=== PATIENT | male | born 1995 | race Caucasian/White ===

== ENCOUNTER 2017-10-09 21:13 | Emergency (ER) | payer MEDICAID ==
[~2017-10-09] VITALS: Ht 591.1 cm; Wt 69.5 kg
[2017-10-09 23:05] LABS: BASOPHILS # (AUTO) 0.1 X10'3 (0-0.2); BASOPHILS % (AUTO) 0.6 % (0-1); EOSINOPHILS # (AUTO) 0.8 X10'3 (0-0.9); EOSINOPHILS % (AUTO) 6.1 % (0-6); HEMATOCRIT 44.3 % (42.0-52.0); HEMOGLOBIN 15.4 g/dl (14.0-17.9); LYMPHOCYTES # (AUTO) 1.7 X10'3 (1.1-4.8); LYMPHOCYTES % (AUTO) 12.5 % (21-51); MEAN CORPUSCULAR HEMOGLOBIN 29.3 PG (27.0-31.0); MEAN CORPUSCULAR HGB CONC 34.9 % (33.0-36.5); MEAN CORPUSCULAR VOLUME 84.2 FL (78-98); MEAN PLATELET VOLUME 7.7 FL (7.4-10.4); MONOCYTES # (AUTO) 1.1 X10'3 (0-0.9); MONOCYTES % (AUTO) 8.5 % (2-12); NEUTROPHILS # (AUTO) 9.7 X10'3 (1.8-7.7); NEUTROPHILS % (AUTO) 72.3 % (42-75); PLATELET COUNT 335 X10'3 (140-440); RED BLOOD COUNT 5.26 X10'6 (4.70-6.10); RED CELL DISTRIBUTION WIDTH 12.9 % (11.5-14.5); WHITE BLOOD COUNT 13.4 X10'3 (4.5-11.0)
[2017-10-09 23:15] LABS: PARTIAL THROMBOPLASTIN TIME 32 SECONDS (22-32); PROTHROMBIN TIME 10.8 SECONDS (9.0-12.0)
[2017-10-09 23:22] LABS: ALANINE AMINOTRANSFERASE 23 U/L (12-78); ALBUMIN 3.6 G/DL (3.4-5.0); ALBUMIN/GLOBULIN RATIO 0.9 (1.1-1.5); ALKALINE PHOSPHATASE 74 IU/L (46-116); ANION GAP 7 (8-16); ASPARTATE AMINO TRANSFERASE 12 U/L (10-37); BILIRUBIN,TOTAL 0.5 MG/DL (0.1-1.0); BLOOD UREA NITROGEN 13 MG/DL (7-18); BUN/CREATININE RATIO 12.1 (5.4-32.0); CALCIUM 9.6 MG/DL (8.5-10.1); CHLORIDE 102 MMOL/L (99-107); CREATININE 1.07 MG/DL (0.60-1.10); GLUCOSE 107 MG/DL (70-104); POTASSIUM 3.6 MMOL/L (3.5-5.1); SODIUM 134 MMOL/L (135-145); TOTAL CARBON DIOXIDE 25.5 MMOL/L (24-32); TOTAL PROTEIN 7.6 G/DL (6.4-8.2); eGFR 86 ML/MIN
[2017-10-10 00:09] VITALS: BP 114/49
[2017-10-10] MEDS ORDERED: SULF1TAB49 PO (00:42)
[2017-10-10] MEDS ORDERED: CEPH500C5 PO (00:42)
== END 2017-10-10 00:54 | disposition home or self-care (01) ==
LOC: ER 21:13
DX: L02.511 Cutaneous abscess of right hand (principal); Z88.8 Allergy status to other drugs, medicaments and biological substances; Z79.899 Other long term (current) drug therapy
CPT/HCPCS: 10060; 36415; 80053; 83605; 84145; 85025; 85610; 85730; 87040; 99284; A6449

== ENCOUNTER 2017-10-15 10:58 | Emergency (ER) | payer MEDICAID ==
[~2017-10-15] VITALS: Ht 172.7 cm; Wt 69.0 kg
[~2017-10-15 10:58] MED LIST: CEPH500C5 PO; SULF1TAB49 PO
[2017-10-15 11:43] VITALS: BP 135/89
== END 2017-10-15 11:46 | disposition home or self-care (01) ==
LOC: ER 10:58
DX: T81.4XXA Infection following a procedure, initial encounter (principal); L03.012 Cellulitis of left finger; L02.512 Cutaneous abscess of left hand; J45.909 Unspecified asthma, uncomplicated; Z88.5 Allergy status to narcotic agent; Y92.9 Unspecified place or not applicable
CPT/HCPCS: 99283; A6222; A6255

== ENCOUNTER 2018-10-27 14:51 | Emergency (ER) | payer MEDICAID ==
[~2018-10-27] VITALS: Ht 172.7 cm; Wt 60.0 kg
[2018-10-27 14:53] VITALS: BP 123/62
== END 2018-10-27 15:56 | disposition home or self-care (01) ==
LOC: ER 14:51
DX: M25.531 Pain in right wrist (principal); M25.532 Pain in left wrist; J45.909 Unspecified asthma, uncomplicated; Z88.8 Allergy status to other drugs, medicaments and biological substances; Y08.89XA Assault by other specified means, initial encounter; Y93.89 Activity, other specified; Y92.148 Other place in prison as the place of occurrence of the external cause; Y99.8 Other external cause status
CPT/HCPCS: 71045; 73030; 73110; 99283

== ENCOUNTER 2019-02-14 23:01 | Emergency (ER) | payer MEDICAID ==
[~2019-02-14] VITALS: Ht 180.3 cm; Wt 68.2 kg
[2019-02-15 00:20] VITALS: BP 136/78
== END 2019-02-15 00:22 | disposition home or self-care (01) ==
LOC: ER 23:02
DX: S82.252A Displaced comminuted fracture of shaft of left tibia, initial encounter for closed fracture (principal); J45.909 Unspecified asthma, uncomplicated; Z88.5 Allergy status to narcotic agent; V09.9XXA Pedestrian injured in unspecified transport accident, initial encounter; Y93.89 Activity, other specified; Y92.89 Other specified places as the place of occurrence of the external cause; Y99.9 Unspecified external cause status
CPT/HCPCS: 29515; 99283

== ENCOUNTER 2019-02-22 18:24 | Emergency (ER) | payer MEDICAID ==
[~2019-02-22] VITALS: Ht 177.8 cm; Wt 68.2 kg
[2019-02-22] MEDS ORDERED: HYDROcodone/acetaminophen 5mg/325mg tablet PO ONE (19:05)
[2019-02-22 20:32] VITALS: BP 128/65
== END 2019-02-22 20:35 | disposition home or self-care (01) ==
LOC: ER 18:25
DX: M79.605 Pain in left leg (principal); J45.909 Unspecified asthma, uncomplicated; L90.5 Scar conditions and fibrosis of skin; Z59.0 Homelessness; Z88.6 Allergy status to analgesic agent; X58.XXXA Exposure to other specified factors, initial encounter; Y93.89 Activity, other specified; Y92.89 Other specified places as the place of occurrence of the external cause; Y99.8 Other external cause status
CPT/HCPCS: 29515; 99284

== ENCOUNTER 2019-03-16 12:34 | Inpatient (IN) | payer MEDICAID ==
[~2019-03-16] VITALS: Ht 180.3 cm; Wt 68.2 kg
[2019-03-16] MEDS ORDERED: CEPH-572 PO (13:29)
[2019-03-16] MEDS ORDERED: SULF1TAB49 PO (13:29)
[2019-03-16] MEDS ORDERED: LIDOcaine 1% W/epiNEPHrine 1:200,000 10ml vial IJ ONE (13:45)
[2019-03-16] MEDS ORDERED: HYDROcodone/acetaminophen 10/325mg tab PO ONE (14:05)
[2019-03-16] MEDS ORDERED: iohexol 300mg/ml 100ml inj. ONE (14:25)
[2019-03-16] MEDS ORDERED: levoFLOXACIN-Levaquin 500mg/D5 100 ML IV ONE (14:35)
[2019-03-16] MEDS ORDERED: normal saline 1000ML IV soln IVB ONE (14:35)
[2019-03-16 14:45] LABS: BASOPHILS # (AUTO) 0.1 X10'3 (0-0.2); BASOPHILS % (AUTO) 0.5 % (0-1); EOSINOPHILS # (AUTO) 0.1 X10'3 (0-0.9); EOSINOPHILS % (AUTO) 0.6 % (0-6); HEMATOCRIT 38.3 % (42.0-52.0); LYMPHOCYTES # (AUTO) 1.3 X10'3 (1.1-4.8); LYMPHOCYTES % (AUTO) 5.7 % (21-51); MEAN CORPUSCULAR HEMOGLOBIN 28.1 PG (27.0-31.0); MEAN CORPUSCULAR VOLUME 82.5 FL (78-98); MEAN PLATELET VOLUME 6.4 FL (7.4-10.4); MONOCYTES # (AUTO) 1.7 X10'3 (0-0.9); MONOCYTES % (AUTO) 7.6 % (2-12); NEUTROPHILS # (AUTO) 19.3 X10'3 (1.8-7.7); NEUTROPHILS % (AUTO) 85.6 % (42-75); PLATELET COUNT 450 X10'3 (140-440); RED BLOOD COUNT 4.64 X10'6 (4.70-6.10); RED CELL DISTRIBUTION WIDTH 14.1 % (11.5-14.5); WHITE BLOOD COUNT 22.5 X10'3 (4.5-11.0)
[2019-03-16 14:56] LABS: ALANINE AMINOTRANSFERASE 40 U/L (12-78); ALBUMIN 2.7 G/DL (3.4-5.0); ALBUMIN/GLOBULIN RATIO 0.5 (1.1-1.5); ALKALINE PHOSPHATASE 115 IU/L (46-116); ANION GAP 1 (8-16); ASPARTATE AMINO TRANSFERASE 12 U/L (10-37); BILIRUBIN,TOTAL 0.1 MG/DL (0.1-1.0); BLOOD UREA NITROGEN 13 MG/DL (7-18); BUN/CREATININE RATIO 17.6 (5.4-32.0); CALCIUM 9.3 MG/DL (8.5-10.1); CHLORIDE 102 MMOL/L (99-107); CREATININE 0.74 MG/DL (0.60-1.10); GLUCOSE 94 MG/DL (70-104); POTASSIUM 4.8 MMOL/L (3.5-5.1); SODIUM 136 MMOL/L (135-145); TOTAL CARBON DIOXIDE 32.8 MMOL/L (24-32); TOTAL PROTEIN 7.8 G/DL (6.4-8.2); eGFR > 90 ML/MIN
[2019-03-16] MEDS ORDERED: NO HOME MEDS (16:19)
[2019-03-16] MEDS ORDERED: HYDROcodone/acetaminophen 5mg/325mg tablet PO PRN (16:25)
[2019-03-16] MEDS ORDERED: magnesium Cl slow-release 64mg tablet PO PRN (16:25)
[2019-03-16] MEDS ORDERED: ondansetron/PF 4mg/2ml inj IV PRN (16:25)
[2019-03-16] MEDS ORDERED: metoclopramide 5 mg/ml inj IV PRN (16:25)
[2019-03-16] MEDS ORDERED: diphenhydrAMINE 50 mg/ml inj IV PRN (16:25)
[2019-03-16] MEDS ORDERED: diphenhydrAMINE 25mg capsule PO PRN (16:25)
[2019-03-16] MEDS ORDERED: acetaminophen 325mg tablet PO PRN ×2 (16:25)
[2019-03-16] MEDS ORDERED: potassium Cl 20 mEq SR tablet PO PRN ×2 (16:25)
[2019-03-16] MEDS ORDERED: magnesium hydroxide 30ml (MOM) UD suspension PO PRN (16:25)
[2019-03-16] MEDS ORDERED: bisacodyl 10mg suppository rectal RC PRN (16:25)
[2019-03-16] MEDS ORDERED: magnesium 4gm in 100ml NS 100 ML IV PRN (16:25)
[2019-03-16] MEDS ORDERED: magnesium 2GM in 50ml NS 50 ML IV PRN (16:25)
[2019-03-16] MEDS ORDERED: potassium CL 10mEq/100ml bag 100 ML IV PRN ×2 (16:25)
[2019-03-16] MEDS ORDERED: mag hydrox/Alum hydrox/simeth 30ml oral suspension PO PRN (16:25)
[2019-03-16 16:54] LABS: PARTIAL THROMBOPLASTIN TIME 31 SECONDS (22-32)
[2019-03-16] MEDS: normal saline 1000ml 1,000 ML IV SCH (17:11)
[2019-03-16] MEDS ORDERED: TETanus/Pertussis (Acell)/Diphther VAC/PF (Tdap-Adult) 0.5ml syringe IMVAC ONE (17:40)
[2019-03-16] MEDS: VANCOMYCIN 1gm/H2O 200ml PB 200 ML IV SCH (18:49)
[2019-03-16] MEDS: K and/or MAG REPLACEMENT MC SCH (20:00)
--- NOTE | 2019-03-16 20:12 | NUR ---
Patient in room [facility] 354. I have received report from CRISTOFER Diaz in ED and had the opportunity to ask questions and will assume patient care when pt arrives to unit
--- NOTE | 2019-03-16 20:28 | NUR ---
Pt brought up from ED via gurney and was able to ambulate to bed. Pt is A&O x4, VSS
[2019-03-16 20:40] VITALS: BP 113/62
[2019-03-16] MEDS: HYDROcodone/acetaminophen 10/325mg tab PO PRN (20:49)
[2019-03-16] MEDS: docusate sod 100mg capsule PO SCH (20:56)
[2019-03-16] MEDS ORDERED: temazepam 15mg capsule PO PRN (21:00)
[2019-03-17] VITALS: BP 110/55
[2019-03-17] MEDS: HYDROcodone/acetaminophen 10/325mg tab PO PRN ×4 (02:21→22:03)
[2019-03-17] MEDS: VANCOMYCIN 1gm/H2O 200ml PB 200 ML IV SCH ×3 (02:22→19:36)
[2019-03-17 02:33] LABS: URINE AMPHETAMINE SCREEN NEGATIVE (Neg); URINE BARBITUATE SCREEN NEGATIVE (Neg); URINE BENZODIAZEPINES SCREEN NEGATIVE (Neg); URINE CANNABINOID SCREEN POSITIVE (Neg); URINE COCAINE SCREEN NEGATIVE (Neg); URINE METHADONE SCREEN NEGATIVE (Neg); URINE OPIATE SCREEN POSITIVE (Neg); URINE PHENCYCLIDINE SCREEN NEGATIVE (Neg)
[2019-03-17] MEDS: normal saline 1000ml 1,000 ML IV SCH ×3 (04:41→17:58)
[2019-03-17 05:03] LABS: BASOPHILS % (AUTO) 0.3 % (0-1); EOSINOPHILS # (AUTO) 0.3 X10'3 (0-0.9); EOSINOPHILS % (AUTO) 1.6 % (0-6); HEMATOCRIT 36.1 % (42.0-52.0); HEMOGLOBIN 12.2 g/dl (14.0-17.9); LYMPHOCYTES # (AUTO) 1.8 X10'3 (1.1-4.8); MEAN CORPUSCULAR HEMOGLOBIN 27.8 PG (27.0-31.0); MEAN CORPUSCULAR HGB CONC 33.8 g/dL (33.0-36.5); MEAN CORPUSCULAR VOLUME 82.2 FL (78-98); MEAN PLATELET VOLUME 6.5 FL (7.4-10.4); MONOCYTES # (AUTO) 1.5 X10'3 (0-0.9); MONOCYTES % (AUTO) 9.4 % (2-12); NEUTROPHILS # (AUTO) 12.7 X10'3 (1.8-7.7); NEUTROPHILS % (AUTO) 77.7 % (42-75); PLATELET COUNT 379 X10'3 (140-440); RED BLOOD COUNT 4.39 X10'6 (4.70-6.10); WHITE BLOOD COUNT 16.3 X10'3 (4.5-11.0)
[2019-03-17 05:16] LABS: ALANINE AMINOTRANSFERASE 28 U/L (12-78); ALBUMIN 2.1 G/DL (3.4-5.0); ALBUMIN/GLOBULIN RATIO 0.5 (1.1-1.5); ALKALINE PHOSPHATASE 97 IU/L (46-116); ANION GAP 8 (8-16); ASPARTATE AMINO TRANSFERASE 11 U/L (10-37); BILIRUBIN,TOTAL 0.1 MG/DL (0.1-1.0); BLOOD UREA NITROGEN 11 MG/DL (7-18); BUN/CREATININE RATIO 16.2 (5.4-32.0); CALCIUM 8.7 MG/DL (8.5-10.1); CHLORIDE 103 MMOL/L (99-107); CREATININE 0.68 MG/DL (0.60-1.10); GLUCOSE 90 MG/DL (70-104); MAGNESIUM 1.9 MG/DL (1.5-2.4); POTASSIUM 4.2 MMOL/L (3.5-5.1); SODIUM 137 MMOL/L (135-145); TOTAL CARBON DIOXIDE 25.9 MMOL/L (24-32); TOTAL PROTEIN 6.6 G/DL (6.4-8.2); eGFR > 90 ML/MIN
--- NOTE | 2019-03-17 06:30 | NUR ---
Patient in room [facility] 341. I have received report from Magda C[place] and had the opportunity to ask questions and assume patient care.
--- NOTE | 2019-03-17 06:36 | NUR ---
Problems reprioritized. Patient report given, questions answered & plan of care reviewed with CRISTOFER Matamoros.
[2019-03-17 07:26] VITALS: BP 101/54
[2019-03-17] MEDS: docusate sod 100mg capsule PO SCH ×2 (08:00→21:46)
[2019-03-17] MEDS: K and/or MAG REPLACEMENT MC SCH ×2 (08:00→20:00)
[2019-03-17] MEDS: levoFLOXACIN-Levaquin 500mg/D5 100 ML IV SCH (09:21)
[2019-03-17 12:00] VITALS: BP 110/61
[2019-03-17] MEDS ORDERED: VANCOMYCIN LEVEL IV NR (18:30)
--- NOTE | 2019-03-17 18:30 | NUR ---
Patient in room [facility] 341. I have received report from dinorah C[place] and had the opportunity to ask questions and assume patient care.
--- NOTE | 2019-03-17 18:30 | NUR ---
Problems reprioritized. Patient report given, questions answered & plan of care reviewed with BREANNA C[place].
[2019-03-17 19:00] VITALS: BP 110/49
[2019-03-17] MEDS: Dakins solution (1/4 strength) 473ml solution TP SCH (20:00)
[2019-03-18] VITALS: BP 96/64
[2019-03-18] MEDS: VANCOMYCIN 1gm/H2O 200ml PB 200 ML IV SCH (03:08)
[2019-03-18] MEDS ORDERED: morphine 4 MG/ML inj SYRINge IV PRN (04:15)
[2019-03-18] MEDS: HYDROcodone/acetaminophen 10/325mg tab PO PRN ×2 (04:32→09:29)
[2019-03-18 05:09] LABS: BASOPHILS # (AUTO) 0.1 X10'3 (0-0.2); BASOPHILS % (AUTO) 0.6 % (0-1); EOSINOPHILS # (AUTO) 0.4 X10'3 (0-0.9); EOSINOPHILS % (AUTO) 3.3 % (0-6); HEMATOCRIT 38.6 % (42.0-52.0); HEMOGLOBIN 13.2 g/dl (14.0-17.9); LYMPHOCYTES # (AUTO) 1.9 X10'3 (1.1-4.8); LYMPHOCYTES % (AUTO) 17.2 % (21-51); MEAN CORPUSCULAR HEMOGLOBIN 27.7 PG (27.0-31.0); MEAN CORPUSCULAR HGB CONC 34.1 g/dL (33.0-36.5); MEAN CORPUSCULAR VOLUME 81.3 FL (78-98); MEAN PLATELET VOLUME 6.4 FL (7.4-10.4); MONOCYTES # (AUTO) 1.2 X10'3 (0-0.9); MONOCYTES % (AUTO) 10.3 % (2-12); NEUTROPHILS # (AUTO) 7.7 X10'3 (1.8-7.7); NEUTROPHILS % (AUTO) 68.6 % (42-75); PLATELET COUNT 404 X10'3 (140-440); RED BLOOD COUNT 4.75 X10'6 (4.70-6.10); RED CELL DISTRIBUTION WIDTH 14.1 % (11.5-14.5); WHITE BLOOD COUNT 11.3 X10'3 (4.5-11.0)
[2019-03-18 05:26] LABS: ALANINE AMINOTRANSFERASE 29 U/L (12-78); ALBUMIN 2.3 G/DL (3.4-5.0); ALBUMIN/GLOBULIN RATIO 0.5 (1.1-1.5); ALKALINE PHOSPHATASE 95 IU/L (46-116); ANION GAP 5 (8-16); ASPARTATE AMINO TRANSFERASE 12 U/L (10-37); BILIRUBIN,TOTAL 0.1 MG/DL (0.1-1.0); BLOOD UREA NITROGEN 13 MG/DL (7-18); BUN/CREATININE RATIO 19.1 (5.4-32.0); CHLORIDE 103 MMOL/L (99-107); CREATININE 0.68 MG/DL (0.60-1.10); GLUCOSE 85 MG/DL (70-104); MAGNESIUM 2.1 MG/DL (1.5-2.4); POTASSIUM 4.2 MMOL/L (3.5-5.1); SODIUM 137 MMOL/L (135-145); TOTAL CARBON DIOXIDE 29.1 MMOL/L (24-32); TOTAL PROTEIN 6.8 G/DL (6.4-8.2); eGFR > 90 ML/MIN
--- NOTE | 2019-03-18 06:28 | NUR ---
Problems reprioritized. Patient report given, questions answered & plan of care reviewed with Maliha C[place].
--- NOTE | 2019-03-18 06:30 | NUR ---
Patient in room [facility] 341. I have received report from CRISTOFER Bruner and had the opportunity to ask questions and assume patient care.
--- NOTE | 2019-03-18 06:38 | NUR ---
Problems reprioritized. Patient report given, questions answered & plan of care reviewed with Maliha C[place].
[2019-03-18 06:59] VITALS: BP 100/60
[2019-03-18] MEDS: K and/or MAG REPLACEMENT MC SCH (07:16)
[2019-03-18] MEDS: docusate sod 100mg capsule PO SCH (08:00)
[2019-03-18] MEDS: normal saline 1000ml 1,000 ML IV SCH (08:23)
[2019-03-18] MEDS: levoFLOXACIN-Levaquin 500mg/D5 100 ML IV SCH (09:28)
[2019-03-18] MEDS: Dakins solution (1/4 strength) 473ml solution TP SCH (09:30)
[2019-03-18] MEDS ORDERED: iohexol 300mg/ml 100ml inj. ONE (09:51)
[2019-03-18 11:00] VITALS: BP 106/63
[2019-03-18] MEDS ORDERED: VANCOmycin 1250MG/NS 250ml Bag 250 ML IV SCH (11:00)
[2019-03-18] MEDS: clindamycin 600mg/D5W 50ml 50 ML IV SCH ×2 (12:11→14:00)
[2019-03-18] MEDS ORDERED: DOXY-243 PO (16:05)
[2019-03-18] MEDS ORDERED: CLIN300C11 PO (16:05)
--- NOTE | 2019-03-18 16:44 | NUR ---
Patient discharged home via self and taken from unit via wheelchair with x1 staff. Patient left in own clothing but did not have shoes. Patient was offered shoes but stated that he just wanted to leave. Patient also states he has a ride that is a block away. Patient offered a cab but refused this as well. PIV removed with cannula intact. Patient took all belongings with him including discharged instructions. Discharge instructions discussed with patient and he stated an understanding. Patient encouraged to follow up with Dr. López. Patient also given a prescription for two antibiotics, Patient stated he was going to go and fill these tomorrow. Patient was encouraged to fill the prescriptions today in order to start the antibiotics. He stated he would rather go tomorrow and that he will go first thing in the morning.
[2019-03-18] MEDS ORDERED: lactobacillus rhamnosus 10,000 MMU CELLS/CAPSULE PO SCH (20:00)
[2019-03-19] MEDS ORDERED: VANCOMYCIN LEVEL IV ONE (10:30)
== END 2019-03-18 16:43 | disposition home or self-care (01) | DRG 720 ==
LOC: ER 12:35 → ED HOLD 16:33 → SUR 3N 20:36
PROVIDERS: ADMIT Family Medicine; ATTEND Family Medicine
DX: A41.9 Sepsis, unspecified organism (principal); J45.909 Unspecified asthma, uncomplicated; L02.31 Cutaneous abscess of buttock; S01.81XA Laceration without foreign body of other part of head, initial encounter; X58.XXXA Exposure to other specified factors, initial encounter; Y93.89 Activity, other specified; Y92.89 Other specified places as the place of occurrence of the external cause; Y99.8 Other external cause status
CPT/HCPCS: 10061; 36415; 72193; 73564; 73590; 73610; 74177; 80053; 80202; 80305; 83605; 83735; 84145; 85025; 85610; 85730; 87040; 87070; 87077; 87081; 87186; 90715; 96365; 97116; 97161; 97530; 97760; 99285; G0378; J1956; J3370; J3490; J7030; Q9967